=== PATIENT | female | born 1960 | race African-American/Black ===

== ENCOUNTER 2017-03-27 16:23 | Emergency (ER) | payer OTHER ==
[~2017-03-27] VITALS: Ht 162.6 cm; Wt 123.0 kg
[~2017-03-27 16:23] MED LIST: AMLO5TAB88 PO; DEVIL S CLAW; HYDR25TA PO; METF500T4 PO; OMEP20TA80 PO
[2017-03-27 16:25] VITALS: BP 126/79
== END 2017-03-27 20:51 | disposition left against medical advice (07) ==
LOC: ER 20:45
DX: Z53.21 Procedure and treatment not carried out due to patient leaving prior to being seen by health care provider (principal)

== ENCOUNTER 2019-06-30 19:55 | Emergency (ER) | payer OTHER ==
[~2019-06-30] VITALS: Ht 162.6 cm; Wt 125.0 kg
[~2019-06-30 19:55] MED LIST changes: +METF-414 PO; -METF500T4 PO; +OMEP20TA2 PO; -OMEP20TA80 PO
[2019-06-30] MEDS ORDERED: TRAMADOL 50MG TABLET PO ONE (23:15)
[2019-06-30 23:47] VITALS: BP 128/76
== END 2019-06-30 23:52 | disposition home or self-care (01) ==
LOC: ER 19:55
DX: N93.9 Abnormal uterine and vaginal bleeding, unspecified (principal); I10 Essential (primary) hypertension; E11.9 Type 2 diabetes mellitus without complications; E66.9 Obesity, unspecified; Z68.42 Body mass index [BMI] 45.0-49.9, adult; Z98.890 Other specified postprocedural states; Z79.84 Long term (current) use of oral hypoglycemic drugs; Z88.0 Allergy status to penicillin
CPT/HCPCS: 76830; 76856; 99284; Z7610

== ENCOUNTER 2021-11-24 17:10 | Emergency (ER) | payer OTHER ==
[~2021-11-24] VITALS: Ht 162.6 cm; Wt 127.0 kg
[2021-11-24] MEDS ORDERED: IBUPROFEN 400MG TABLET PO ONE (18:00)
[2021-11-24 19:28] LABS: BASOPHILS % 0.4 % (0.0-2.0); EOSINOPHILS % 3.7 % (0.0-5.0); HEMATOCRIT. 37.4 % (36.0-48.0); HEMOGLOBIN. 12.7 g/dL (12.0-16.0); LYMPHOCYTES % 51.8 % (20.0-50.0); MEAN CORPUSCULAR HEMOGLOBIN 28.2 pg (28.0-32.0); MEAN CORPUSCULAR VOLUME 82.9 fL (81.0-99.0); MEAN PLATELET VOLUME 8.3 fl (7.4-10.4); MONOCYTES % 8.6 % (2.0-8.0); NEUTROPHILS % 35.5 % (40.0-76.0); PLATELET 243 x1000/uL (130-400); RED BLOOD CELL COUNT 4.51 mill/uL (4.2-5.4)
[2021-11-24 19:43] LABS: CHLORIDE 106 mEq/L (98-107)
[2021-11-24] MEDS ORDERED: NAPR-681 MT (21:52)
[2021-11-24 21:58] VITALS: BP 136/80
== END 2021-11-24 22:00 | disposition home or self-care (01) ==
LOC: ER 17:10
DX: M25.511 Pain in right shoulder (principal); E11.9 Type 2 diabetes mellitus without complications; I10 Essential (primary) hypertension
CPT/HCPCS: 36415; 71045; 73030; 80053; 84484; 85025; 93005; 99285